=== PATIENT | male | born 2000 | race Caucasian/White ===

== ENCOUNTER 2023-12-24 21:57 | Emergency (ER) | payer BC, SELFPAY ==
[2023-12-24 22:01] VITALS: BP 141/87
[2023-12-24 22:16] LABS: % Basophils 0.4 % (0-2); % Eosinophils 0.8 % (0-6); % Immature Granulocytes 0.4 % (0-0.5); % Lymphocytes 24.2 % (20.5-51.1); % Monocytes 7.1 % (1.7-9.3); % Neutrophils 67.1 % (42.2-75.2); Absolute Eosinophils 0.1 10^3/uL (0-0.7); Absolute Lymphocytes 2.5 10^3/uL (1.2-3.4); Absolute Monocytes 0.8 10^3/uL (0.1-0.6); Absolute Neutrophils 7.1 10^3/uL (1.4-6.5); Hematocrit 44.8 % (39.0-52.0); Mean Corp Hgb Conc. 35.7 g/dL (33.0-37.0); Mean Corpuscular Hgb 30.3 pg (27.0-31.0); Mean Corpuscular Volume 84.8 fL (80.0-94.0); Mean Platelet Volume 9.7 fL (7.4-10.4); Nucleated Red Blood Cells % 0 % (-); Platelet Count 195 10^3/uL (130-400); Red Blood Cell Count 5.28 10^6/uL (4.70-6.10); Red Cell Dist. Width 12.7 % (11.5-14.5); White Blood Cell Count 10.5 10^3/uL (4.8-10.8)
[2023-12-24 22:55] LABS: ALT (SGPT) 24 U/L (0-50); AST (SGOT) 27 U/L (17-59); Albumin 4.7 g/dl (3.5-5.0); Alkaline Phosphatase 75 U/L (38-126); Blood Urea Nitrogen 25 mg/dl (9-20); Calcium 9.5 mg/dl (8.4-10.2); Carbon Dioxide 28 mmol/L (22-30); Chloride 102 mmol/L (98-107); Glucose 100 mg/dl (70-99); Potassium 4.1 mmol/L (3.5-5.1); Sodium 136 mmol/L (135-145); Total Bilirubin 0.7 mg/dl (0.2-1.3); Total Protein 7.7 g/dl (6.3-8.2); eGFR > 60.00
--- NOTE | 2023-12-24 23:43 | ED.GENMED ---
History of Present Illness
General
Chief Complaint: Skin Problem
Source: patient
Exam Limitations: none
Time Seen by Provider: 12/24/23 23:30
Travel History
Have you had any contact with someone who has COVID-19?: No
Do you have any symptoms of coronavirus? Fever > 100 degrees, chills, cough, shortness of breath, sore throat, loss of taste or smell, muscle aches, or headache?: No
History of Present Illness
History of Present Illness:
This is a 23 year old male that comes in with c/o swelling of his forehead. States that he has an abscess opened at today. States that his forehead is swollen and it is pain full. Patient took Tylenol 1000mg earlier today and the again 500mg at
4-5 pm. States that he was concerned about the swelling. States that he does have a headache. Denies any fever, chills, nausea, vomiting, diarrhea, abd pain, dizziness.
Past History
Past History
ED Past Medical History: Other (hx of previous skin abscesses); Negative Asthma, HTN, Hypercholesterolemia or NIDDM
ED Past Surgical History: None
Patient has exhibited threatening behavior?: No
Social History
Tobacco: Non-smoker
Alcohol: Occasional
Drug: None
Personal: Single
Living: with family (Sabianist and with parents)
Employment: Student
Family History
Family History: Other (Non-contributory)
Review of Systems
Review of Systems
All Other Systems: ROS reviewed and negative except as documented in HPI and ROS
Constitutional: Reports no symptoms; Denies fever or chills
EENT: Reports no symptoms
Respiratory: Reports no symptoms; Denies cough or trouble breathing
Cardiac: Reports no symptoms
ABD/GI: Reports no symptoms; Denies abdominal pain, nausea, vomiting or diarrhea
: Reports no symptoms
Musculoskeletal: Reports no symptoms
Skin: Reports other (Swelling of the forehead around abscess that was drained today)
Neurological: Reports headache; Denies dizzy
Psychiatric: Reports no symptoms
Phy Exam
General Physical Exam
General Presentation: well appearing and no apparent distress
General age: appears stated age
General Skin: warm and dry
General Habitus: normal
General Mental: alert
ENT Exam
ENT Exam: TM's normal, pharynx normal and neck supple
Eye Exam
Eye Exam: EOMI
Cardiovascular Exam
Cardiovascular Exam: regular rate/rhythm
Skin Exam
Skin Exam: normal color, warm/dry, no rash, no petechia and other (Slight swelling noted on right sided of forehead. Negative for any redness and dressing is dry and intact)
Psychiatric Exam
Psychiatric Exam: normal mood/affect
Course
Orders/Labs/Results
Orders:
Orders
12/24/23 22:10
CMP [Comprehensive Metabolic Panel] Urgent
Complete Blood Count/With Diff Urgent
Abnormal Lab Results
12/24/23
22:10
Absolute Neuts (auto) 7.1 H 10^3/uL
(1.4-6.5)
Absolute Monos (auto) 0.8 H 10^3/uL
(0.1-0.6)
BUN 25 H mg/dl
(9-20)
Glucose 100 H mg/dl
(70-99)
12/24/23 22:10
12/24/23 22:10
Dehydration. Glucose nonfasting.
Vital Signs
Initial and Last Documented VS:
Initial Vital Signs
Temp Pulse Resp BP Pulse Ox
98.3 F 65 18 141/87 98
12/24/23 22:01 12/24/23 22:01 12/24/23 22:01 12/24/23 22:01 12/24/23 22:01
Last Documented Vital Signs
Temp Pulse Resp BP Pulse Ox
98.3 F 65 18 141/87 98
12/24/23 22:01 12/24/23 22:01 12/24/23 22:01 12/24/23 22:01 12/24/23 22:01
MDM/Problems Addressed
Differential Diagnosis Includes:
swelling from abscess drainage.
MDM/Problems Addressed:
This is a 23 year old male that comes in with c/o right sided forehead swelling. States that he has an abscess drained today at . Patient was place n Doxycycline 100mg BID.
Explained to patient that swelling is normal for the body with any injury. Patient can use ice to the forehead. Continue with the antibiotic as prescribed. Explained that there was also fluid injected into the forehead so they could open up the
abscess. This will need to be reabsorbed. Patient to follow up as directed by .
*Pulse Oximetry
Patient hypoxic: no
*EKG
Interpreted by ED Provider?: NA
Rate: EKG- N/A
*Office Machine Servicer Apprentice Interpretation
Rate: Office Machine Servicer Apprentice- N/A
*Critical Care Note
Total Time (30-74mins, 75-104mins- exclusive of procedures): Not Applicable
ED Attending Note
-
Portions of this chart may have been created with voice recognition software.� Occasional wrong word or��sound alike� substitutions may have occurred due to the inherent limitations of voice recognition software.
Discharge Plan
Departure
Patient Disposition: Home (Routine Discharge)
Date of Disposition: 12/24/23
Time of Disposition: 23:52
Patient with high blood pressure during this ER visit?: Yes
Condition: Good
Covid-19: Not Applicable
Discharge Problem:
Swelling of surgical site
Instructions: Wound Care (DC), BLOOD PRESSURE
Prescriptions:
No Action
No Current Medications
sulfamethoxazole-trimethoprim 1 TABLET tablet
1 tab PO BID Qty: 14 0RF
Activity Restrictions/Additional Instructions:
As discussed, the swelling can partly by to the procedure and the fluid that was injected to numb the area. This will just take time to go down. Please use the Antibiotic as directed. Ice to the forehead. Tylenol or Ibuprofen for pain. IF YOU HAVE
ANY REDNESS, FEVER, OR DRAINAGE OR ANY OTHER CONCERNS.
Interventions
Interventions:
*Risk Screen - Suicide Last Done: 12/24/23 22:01
*General Assessment Last Done: 12/24/23 22:01
[2023-12-25] MEDS: MOTRIN 600 MG PO (00:02)
== END 2023-12-25 00:25 | disposition home or self-care (01) ==
LOC: EMR 21:57
PROVIDERS: Emergency Medicine; EMERGENCY PHYSICIAN Emergency Medicine; FAMILY PHYSICIAN Family Medicine
DX: R22.0 Localized swelling, mass and lump, head (principal)
CPT/HCPCS: 99283; 80053; 85025